=== PATIENT | female | born 1950 | race Caucasian/White ===

== ENCOUNTER 2023-09-22 14:44 | Emergency (ER) | payer MEDICARE, OTHER, SELFPAY ==
[2023-09-22 14:49] VITALS: BP 122/67
--- NOTE | 2023-09-22 16:45 | ED.GENMED ---
History of Present Illness
General
Chief Complaint: Swelling
Source: patient
Time Seen by Provider: 09/22/23 16:19
Travel History
Have you had any contact with someone who has COVID-19?: No
Do you have any symptoms of coronavirus? Fever > 100 degrees, chills, cough, shortness of breath, sore throat, loss of taste or smell, muscle aches, or headache?: No
History of Present Illness
History of Present Illness:
73-year-old female presenting to the emergency department with past medical history of hypertension, hyperlipidemia, hypothyroidism, breast cancer for evaluation after she turned her head suddenly yesterday and felt a pain on the left side of her
neck. While trying to massage the area out she noticed a lump on the left side of her neck that had her concerned. Patient states that while she feels that the lump has gotten a little bit smaller today she was still concerned about it so decided
to come to the ER for further evaluation. She denies any fevers or infectious symptoms, difficulty breathing or swallowing, traumatic injuries or any other concerns
Past History
Past History
ED Past Medical History: Cancer, HTN, Hypercholesterolemia and Hypothyroidism
ED Past Surgical History: Other
Social History
Tobacco: Non-smoker
Alcohol: None
Drug: None
Personal:
Living: with family
Review of Systems
Review of Systems
All Other Systems: ROS reviewed and negative except as documented in HPI and ROS
Phy Exam
Physical Exam
Physical Exam:
GENERAL: Alert , in no apparent distress
EYE: conjunctiva clear
Head: Normocephalic atraumatic
NECK: Supple,
ENT: mmm.
LUNGS: no acute respiratory distress
NEUROLOGICAL: Alert and oriented
SKIN: Warm and dry, small less than a dime sized mobile, nontender cystic-like structure overlying the external jugular vein without any overlying erythema or warmth
MUSCULOSKELETAL: well perfused.
PSYCH: Normal and appropriate interaction.
Scores
Heart Failure Risk
Heart Failure Risk Score: Not Applicable
Heart Score for Chest Pain Patients
STEMI patient?: Not applicable
Withdrawal Assessment of Alcohol
Withdrawal Assessment Completed?: Not applicable
Course
Orders/Labs/Results
Orders:
Orders
09/22/23 16:29
US Thyroid [US Thyroid/Neck/Head] Urgent
Comment:
Reason For Exam: soft tissue mass left lateral neck
Vital Signs
Initial and Last Documented VS:
Initial Vital Signs
Temp Pulse Resp BP Pulse Ox
98.2 F 86 18 122/67 97
09/22/23 14:49 09/22/23 14:49 09/22/23 14:49 09/22/23 14:49 09/22/23 14:49
Last Documented Vital Signs
Temp Pulse Resp BP Pulse Ox
98.2 F 76 18 130/80 98
09/22/23 14:49 09/22/23 19:19 09/22/23 14:49 09/22/23 19:19 09/22/23 19:19
MDM/Problems Addressed
Differential Diagnosis Includes:
Cyst, lymph node, aneurysm, dissection
MDM/Problems Addressed:
73-year-old female presenting to the emergency department for evaluation of a lump in the left side of her neck that she noticed yesterday after turning her head quickly. No pain on palpation. Lump is mobile soft and nontender. Suspect this to be
more likely a lymph node versus cyst. Will obtain an ultrasound to further evaluate. Reassessment following.
*Radiology
Radiology exam reviewed: radiology read reviewed
*Pulse Oximetry
Patient hypoxic: no
*Critical Care Note
Total Time (30-74mins, 75-104mins- exclusive of procedures): Not Applicable
Comment
Comment:
Ultrasound seems to be consistent with suspected diagnosis of a dermoid cyst versus lymph node. Patient will follow-up with her general surgeon for further evaluation. No signs of infection. Otherwise aware of return precautions but stable for
discharge home.
ED Attending Note
-
Portions of this chart may have been created with voice recognition software.� Occasional wrong word or��sound alike� substitutions may have occurred due to the inherent limitations of voice recognition software.
Discharge Plan
Departure
Patient Disposition: Home (Routine Discharge)
Date of Disposition: 09/22/23
Time of Disposition: 19:16
Patient with high blood pressure during this ER visit?: No
Discharge Problem:
Cyst
Referrals:
Phani Moyer MD [Family Provider] -
Interventions
Interventions:
*Risk Screen - Suicide Last Done: 09/22/23 15:23
*General Assessment Last Done: 09/22/23 14:49
*Neglect/Abuse Screening Last Done: 09/22/23 15:23
ED- Fall Risk Assessment Last Done: 09/22/23 15:23
*ED COVID-19 Vaccine History Last Done: 09/22/23 14:49
*Nursing Disposition Last Done: 09/22/23 19:20
ED- Cardiac Assessment Last Done: 09/22/23 15:23
ED- Pulmonary Assessment Last Done: 09/22/23 15:23
ED-Skin Assessment Last Done: 09/22/23 15:23
Discharge Date and Time
Discharge Date/Time: 09/22/23 19:21
Print Language: KENYAN
[2023-09-22 19:19] VITALS: BP 130/80
== END 2023-09-22 19:21 | disposition home or self-care (01) ==
LOC: EMR 14:44
PROVIDERS: EMERGENCY PHYSICIAN Emergency Medicine; FAMILY PHYSICIAN Family Medicine
DX: D23.4 Other benign neoplasm of skin of scalp and neck (principal); M54.2 Cervicalgia; I10 Essential (primary) hypertension; E78.00 Pure hypercholesterolemia, unspecified; E03.9 Hypothyroidism, unspecified; Z85.3 Personal history of malignant neoplasm of breast; Z88.2 Allergy status to sulfonamides; Z91.041 Radiographic dye allergy status
CPT/HCPCS: 99284; 76536